=== PATIENT | female | born 1975 | race Caucasian/White ===

== ENCOUNTER 2016-04-12 18:26 | Emergency (ER) | payer SELFPAY | END 2016-04-12 18:50 | disposition left against medical advice (07) | LOC: ER 18:26 | DX: Z53.21 Procedure and treatment not carried out due to patient leaving prior to being seen by health care provider (principal) ==

== ENCOUNTER 2016-04-14 17:53 | Emergency (ER) | payer SELFPAY ==
--- NOTE | 2016-04-14 18:33 | ER Document Report ---
ED Medical Screen (RME) - General Stated Complaint: POSSIBLE BOIL Notes: 41 yo female c/o painful swollen area to right inner thigh x 1 week. no fever. + hx/o MRSA TRAVEL OUTSIDE OF THE [place] IN LAST 30 DAYS: No - Related Data Allergies/Adverse Reactions: cephalexin monohydrate [From Keflex] Allergy (Verified 05/12/15 22:53) Sulfa (Sulfonamide Antibiotics) Allergy (Verified 05/12/15 22:53) Physical Exam - Vital signs Vitals: Temp Pulse Resp BP Pulse Ox 98.0 F 91 18 110/60 99 04/14/16 17:58 04/14/16 17:58 04/14/16 17:58 04/14/16 17:58 04/14/16 17:58 Course - Vital Signs Vital signs: Temp Pulse Resp BP Pulse Ox 98.0 F 91 18 110/60 99 04/14/16 17:58 04/14/16 17:58 04/14/16 17:58 04/14/16 17:58 04/14/16 17:58
--- NOTE | 2016-04-14 20:05 | ER Document Report ---
HPI - HPI Onset: Last week Onset/Duration: Gradual Quality of pain: Throbbing Pain Level: 3 Context: 41-year-old female with a history of abscess had a small papule in her right thigh that she scraped the top off last week. It got bigger and drained after she soaked in Epsom salts but it is continuing to get bigger and she thinks it has to be cut. No fever. History of MRSA. Associated Symptoms: None Exacerbated by: Movement Relieved by: Denies Similar symptoms previously: No Recently seen / treated by doctor: No - ROS ROS below otherwise negative: Yes Systems Reviewed and Negative: Yes All other systems reviewed and negative - REPRODUCTIVE Reproductive: DENIES: : - DERM Skin Color: Normal Past Medical History - General Information source: Patient - Social History Smoking Status: Never Smoker Chew tobacco use (# tins/day): No Frequency of alcohol use: None Drug Abuse: None Family History: Reviewed & Not Pertinent Patient has suicidal ideation: No Patient has homicidal ideation: No - Medical History Medical History: Negative Renal/ Medical History: Denies: Hx Peritoneal Dialysis Infectious Medical History: Denies: Hx MRSA Surgical Hx: Negative Vertical Provider Document - CONSTITUTIONAL Agree With Documented VS: Yes Exam Limitations: No Limitations General Appearance: No Apparent Distress - INFECTION CONTROL TRAVEL OUTSIDE OF THE [place] IN LAST 30 DAYS: No - HEENT HEENT: Conjuctival Injection - NECK Neck: Supple - RESPIRATORY O2 Sat by Pulse Oximetry: 99 - MUSCULOSKELETAL/EXTREMETIES Musculoskeletal/Extremeties: ISAÍAS GAONA - NEURO Level of Consciousness: Awake, Alert - DERM Integumentary: Abscess - right upper medial thigh with drained abscess, no fluctuance, minimal induration/inflammation Course - Vital Signs Vital signs: Temp Pulse Resp BP Pulse Ox 98.0 F 91 18 110/60 99 04/14/16 17:58 04/14/16 17:58 04/14/16 17:58 04/14/16 17:58 04/14/16 17:58 Discharge - Discharge Clinical Impression: post spontaneous drainage, induration, Inflammation Condition: Good Disposition: HOME, SELF-CARE Instructions: Abscess ([facility]), Clindamycin ([facility]), Bactroban Ointment ([facility]) Additional Instructions: bactroban small amount three times per day warm compress when the lesions are small, start the bactroban so they don't get big to er if worse Prescriptions: Clindamycin HCl [Cleocin 150 mg Capsule] 300 mg PO TID #42 capsule Mupirocin [Bactroban 2% Ointment 22 gm] 1 applic TP TID #22 gm Forms: Return to Work
[2016-04-14] MEDS ORDERED: ONDANSETRON 4 MG TAB.RAPDIS PO ONE (20:13)
[2016-04-14] MEDS ORDERED: CLINDAMYCIN HCL 150 MG CAPSULE PO ONE (20:13)
[2016-04-14 20:51] VITALS: BP 118/75
== END 2016-04-14 20:50 | disposition home or self-care (01) ==
LOC: ER 17:53
DX: L02.415 Cutaneous abscess of right lower limb (principal); Z86.14 Personal history of Methicillin resistant Staphylococcus aureus infection
CPT/HCPCS: 99282; S0119